=== PATIENT | male | born 1955 | race Caucasian/White ===

== ENCOUNTER → 2018-12-29 | Outpatient (CLI) | payer BC | LOC: GMAE 11:26 | PROVIDERS: ATTEND Family Medicine | DX: Z00.00 Encounter for general adult medical examination without abnormal findings (principal) ==

== ENCOUNTER → 2019-03-17 | Outpatient (CLI) | payer BC | LOC: GMALS 19:02 | PROVIDERS: ATTEND Nurse Practitioner Acute Care | DX: E34.9 Endocrine disorder, unspecified (principal) ==

== ENCOUNTER → 2020-03-09 | Outpatient (CLI) | payer BC | LOC: GMAE 11:00 | PROVIDERS: ATTEND Family Medicine | DX: Z00.00 Encounter for general adult medical examination without abnormal findings (principal) ==